=== PATIENT | male | born 1955 | race Caucasian/White ===

== ENCOUNTER → 2016-06-06 | Outpatient (CLI) | payer BC | END | disposition home or self-care (01) | LOC: GMA 12:15 | PROVIDERS: ATTEND Nurse Practitioner Acute Care | DX: E53.9 Vitamin B deficiency, unspecified (principal) ==

== ENCOUNTER 2017-08-28 14:17 | Emergency (ER) | payer BC ==
[2017-08-28] MEDS ORDERED: NITROGLYCERIN 0.4 MG 25 EA TAB SL ONE (14:35)
[2017-08-28] MEDS ORDERED: ASPIRIN TABLET 325 MG TAB PO ONE (14:35)
[2017-08-28] MEDS ORDERED: SODIUM CHLORIDE 0.9% (FLUSH) 10 ML SYG IV PRN (14:35)
--- NOTE | 2017-08-28 14:37 | ED.PDOC ---
History of Present Illness - General Chief Complaint: Cardiovascular Problem Stated Complaint: chest pressure Time Seen by Provider: 08/28/17 14:34 Source: patient, family Exam Limitations: no limitations - History of Present Illness Initial Comments: PT REPORTS 2 DAY HISTORY OF INTERMITTENT LEFT SIDED CHEST PRESSURE WITH RADIATION DOWN THE LEFT ARM. PT DENIES ANY MEDICAL HISTORY. HE REPORTS PAIN IS 3/10 IN INTENSITY CURRENTLY BUT STATES IT WAS ABOUT 8/10 YESTERDAY. Timing/Duration: days - 2 Severity/Quality: pressure Location: substernal Chest Pain Radiation: arms Activities at Onset: none Prior Chest Pain/Cardiac Workup: no prior chest pain, no prior cardiac workup Improving Factors: nothing Worsening Factors: nothing Nitro Today/Relief: no nitro taken today Aspirin Treatment Today: no aspirin today Associated Symptoms: denies symptoms Allergies/Adverse Reactions: Allergies Hydrocodone Adverse Reaction (Verified 08/28/17 14:32) Other Home Medications: Ambulatory Orders NK [NK] 08/28/17 Review of Systems - Review of Systems Constitutional: Denies: chills, fever EENTM: Denies: nose congestion, throat pain Respiratory: Denies: cough, short of breath Cardiology: States: see HPI, chest pain. Denies: syncope Gastrointestinal/Abdominal: Denies: abdominal pain, nausea, vomiting Genitourinary: Denies: dysuria, frequency Musculoskeletal: Denies: joint pain, joint swelling Skin: Denies: dryness, lesions Neurological: Denies: headache, numbness Endocrine: States: no symptoms reported Hematologic/Lymphatic: States: no symptoms reported Past Medical History (General) - Patient Medical History Hx Seizures: No Hx Stroke: No Hx Dementia: No Hx Cardiac Disorders: No Hx Congestive Heart Failure: No Hx Pacemaker: No Hx Hypertension: No Hx Thyroid Disease: No Hx Diabetes: No Hx Gastroesophageal Reflux: No Hx Renal Disease: No Surgical History: other - Vaccination History Hx Influenza Vaccination: No Hx Pneumococcal Vaccination: No - Social History Hx Tobacco Use: No Hx Alcohol Use: No Hx Depression: No Family Medical History - Family History Mother Family History: Unknown Physical Exam - Physical Exam General Appearance: Alert, Comfortable, No apparent distress, Well Developed, Well Groomed, Well Hydrated, Well Nourished Eyes, Ears, Nose, Throat Exam: normal ENT inspection Neck: supple, normal inspection Respiratory: lungs clear, normal breath sounds, no respiratory distress Cardiovascular/Chest: regular rate, rhythm, no murmur Gastrointestinal/Abdominal: non tender, soft Extremity: normal inspection, no pedal edema Neurologic: alert, normal mood/affect, oriented x 3 Skin Exam: normal color, warm/dry Progress - Progress Progress: 08/28/17 15:32 PT REPORTS COMPLETE RESOLUTION OF PAIN AFTER 1 SL NTG. LABS AND DIAGNOSTICS DISCUSSED. - Results/Orders Results/Orders: Laboratory Tests 08/28/17 14:35 WBC 10.4 RBC 5.07 Hgb 16.7 Hct 46.6 MCV 91.8 MCH 32.8 H MCHC 35.8 RDW 12.5 Plt Count 164 MPV 7.9 Absolute Neuts (auto) 8.10 H Absolute Lymphs (auto) 1.20 Absolute Monos (auto) 0.90 H Absolute Eos (auto) 0.20 Absolute Basos (auto) 0.00 Neutrophils % 77.3 Lymphocytes % 11.9 L Monocytes % 8.5 Eosinophils % 2.0 Basophils % 0.3 PT 12.1 INR 1.040 PTT (SP) 29.1 Sodium 131 L Potassium 3.7 Chloride 96 L Carbon Dioxide 26 Anion Gap 12.7 BUN 14 Creatinine 0.98 BUN/Creatinine Ratio 14.3 Random Glucose 171 H Serum Osmolality 267.2 L Calcium 9.3 Magnesium 1.9 Creatine Kinase 812 H* CK-MB (CK-2) 75.2 H* CK-MB (CK-2) % 9.26 H Troponin I 11.43 H* B-Natriuretic Peptide 102.0 H - EKG/XRAY/CT EKG: Sinus - 75BPM, NL INTERVALS, NL AXIS, no ST T wave changes, Abnormal Q waves - IN THE INFERIOR LEADS, NO OLD EKG FOR COMPARISON. Departure - Departure Clinical Impression: NSTEMI (non-ST elevated myocardial infarction) Time of Disposition: 15:35 Disposition: Transfer to Hospital Condition: Fair Departure Forms: ED Discharge - Pt. Copy, Patient Portal Self Enrollment Instructions: DI for Chest Pain Referrals: Renny Kim MD [Primary Care Provider] - 1-2 Weeks Home Medications: Ambulatory Orders NK [NK] 08/28/17 Critical Care Note - Critical Care Note Total Time (mins): 42 Comments: CRITICAL EVENT: CHEST PAIN CRITICAL FINDINGS: Q WAVES ON EKG, TPI: 11 CRITICAL ACTIONS: INITIATION OF SL NTG, ASA, IV NTG, IV HEPARIN, CONSULTATION FOR TRANSFER Transfer to Outside Facility - Transfer Information Accepting Provider:: DR. BOWENS Accepting Facility: [facility] Reason for Transfer: required specialist not available - CARDIOLOGY
[2017-08-28 14:49] VITALS: TEMP 98.1
--- NOTE | 2017-08-28 14:53 | RAD ---
EXAM DESCRIPTION: Chest,1 View CLINICAL HISTORY: chest pain COMPARISON: None. IMPRESSION: Single AP portable upright view of the chest shows cardiac silhouette and pulmonary vasculature to be within normal limits. Lungs are normally aerated and clear. No obvious pleural effusion or pneumothorax is seen. Electronically signed by: Manish Carvajal MD 08/28/2017 2:52 PM CDT
[2017-08-28 15:21] VITALS: O2SAT 97
[2017-08-28] MEDS ORDERED: NITROGLYCERIN/D5W IV 50,000 MCG in PREMIX BOTTLE 1 BOTTLE IVS SCH (15:30)
[2017-08-28] MEDS ORDERED: HEPARIN PREMIX 25,000 UNITS in PREMIX BAG 1 BAG IVS SCH (15:30)
[2017-08-28] MEDS ORDERED: NITROGLYCERIN/D5W IV 250 ML IVS ONE (15:42)
[2017-08-28 16:40] VITALS: BP 143/78
== END 2017-08-28 16:40 | disposition short-term general hospital (02) ==
LOC: ER 14:17
DX: I21.4 Non-ST elevation (NSTEMI) myocardial infarction (principal)

== ENCOUNTER → 2018-02-05 | Outpatient (CLI) | payer BC | LOC: GMAM 17:10 | PROVIDERS: ATTEND Family Medicine | DX: E53.9 Vitamin B deficiency, unspecified (principal); E29.1 Testicular hypofunction; E55.9 Vitamin D deficiency, unspecified ==

== ENCOUNTER → 2018-03-06 | Outpatient (CLI) | payer BC | LOC: GMAM 10:50 | PROVIDERS: ATTEND Family Medicine | DX: E29.1 Testicular hypofunction (principal) ==

== ENCOUNTER → 2018-08-06 | Outpatient (CLI) | payer BC | LOC: GMAM 10:14 | PROVIDERS: ATTEND Family Medicine | DX: E29.1 Testicular hypofunction (principal); I10 Essential (primary) hypertension; Z12.5 Encounter for screening for malignant neoplasm of prostate ==

== ENCOUNTER → 2018-11-07 | Outpatient (CLI) | payer BC ==
--- NOTE | 2018-11-08 11:41 | MRI ---
EXAM DESCRIPTION: Cervical Spine: MRI. CLINICAL HISTORY: 63 years Male CERVICAL DISC DISORDER COMPARISON: Cervical spine radiographs 11/05/2018. TECHNIQUE: Multiplanar, high-field MRI, multiple sequences, non-contrast Cervical spine. FINDINGS: C2-C3: Normal disc with disc space preserved. Minimal hypertrophic arthrosis left facet and left neural foraminal narrowing. Canal and right neuroforamen are patent. C3-C4: Normal signal in the disc with disc space preserved. Hypertrophic right facet arthrosis and minimal neural foraminal narrowing. Canal and left neuroforamen are patent. C4-C5: Posterior midline 3 mm disc bulge with hyperintense T2 annular fissure abutting the ventral cord. Minimal canal narrowing. Facets negative. Bilateral neural foramina are patent. C5-C6: Desiccated disc with anterior and posterior bulging and disc space loss. Trace retrolisthesis. Left posterior disc protrusion 5 mm abutting the cord and the exiting left C6 nerve. Left uncinate spur. Borderline left neural foraminal stenosis and left paracentral mild canal stenosis. Mild to moderate narrowing of the right foramen with uncinate spur. Facets are negative. C6-C7: Disc desiccation, minimal disc space loss, anterior and posterior bulging. Not encroaching on the cord. Minimal thickening of the ligaments and mild canal narrowing. Facet joints are negative. Bilateral moderate neural foraminal narrowing. Normal signal in the remaining discs with no bulging. Disc spaces preserved. Canal and neural foramina are patent. Facet joints unremarkable. Spinal alignment kyphosis C2-C6. No cord compression or cord edema. Atlantoaxial joint minimal arthrosis and hypertrophy of the anterior ligament. Base of the cerebellar tonsils is above the foramen magnum. Paravertebral soft tissues negative. Vertebral bodies are not compressed at any level. Normal marrow signal in the remaining vertebral bodies and the posterior elements. IMPRESSION: 1. Multiple levels of the desiccated discs. Minimal spondylosis. No canal stenosis. 2. Posterior midline bulge C4-C5 with annular fissure abutting the ventral cord. Minimal canal narrowing. Foramina patent. 3. Left posterior C5-C6 disc protrusion abutting the cord and the exiting left C6 nerve. Borderline left neural foraminal stenosis. Paracentral left mild canal stenosis. Correlate for left C6 radiculopathy. Electronically signed by: Zach Pierce MD 11/08/2018 11:39 AM CDT
== END ==
LOC: MRI 10:49
PROVIDERS: ATTEND Family Medicine
DX: M50.122 Cervical disc disorder at C5-C6 level with radiculopathy (principal); M50.123 Cervical disc disorder at C6-C7 level with radiculopathy; M43.12 Spondylolisthesis, cervical region; M46.02 Spinal enthesopathy, cervical region; M48.02 Spinal stenosis, cervical region

== ENCOUNTER → 2019-03-10 | Outpatient (CLI) | payer BC | LOC: LAB.O 09:16 | PROVIDERS: ATTEND Family Medicine | DX: D75.0 Familial erythrocytosis (principal); R73.09 Other abnormal glucose; E29.1 Testicular hypofunction ==

== ENCOUNTER → 2019-03-10 | Outpatient (CLI) | payer BC | LOC: GMAM 11:26 | PROVIDERS: ATTEND Family Medicine | DX: E29.1 Testicular hypofunction (principal); R73.09 Other abnormal glucose ==

== ENCOUNTER → 2019-03-19 | Outpatient (CLI) | payer BC ==
--- NOTE | 2019-03-19 19:09 | US ---
EXAM DESCRIPTION: Gall Bladder: ULTRASOUND. CLINICAL HISTORY: ERYTHROCYTOSIS COMPARISON: None. TECHNIQUE: Transabdominal scanning: Edwards-scale and Doppler modes. FINDINGS: Gallbladder: normal size, shape, echogenicity; no intraluminal stones or sludge. No fluid around the gallbladder. No wall thickening. 2.9 mm. Non-tender with transducer pressure. Common bile duct: caliber 5.1. mm within normal limits. Liver: Increased heterogeneous echogenicity; contour liver capsule smooth where seen. No fluid around the liver. Intrahepatic biliary ducts normal caliber. Doppler hepatopedal flow portal vein.. Long axis right lobe 16.8 cm. Pancreas: normal size Normal echogenicity. Duct not seen. Aorta: Proximal aorta diameter 2.6 cm. Right kidney: 12.1 cm Long axis with normal cortical thickness and echogenicity. No echogenic stones. No hydronephrosis. 8 x 7 mm internal cyst. Juxtacortical 7 x 6 mm cyst. IMPRESSION: Fatty liver borderline enlarged. Physiologic vascularity with no dilated ducts. Smooth capsule with no ascites. Gallbladder and pancreas are unremarkable. Normal caliber of the duct. Internal and external simple cysts on the right kidney. 2.6 cm proximal abdominal aortic aneurysm suspected. Recommend follow-up every 5 years. Reference: J Am Zhanna Radiol 2013;10:789-794. Electronically signed by: Zach Pierce MD 03/19/2019 7:08 PM MARKETING INFORMATION COORDINATOR
== END ==
LOC: US 08:13
PROVIDERS: ATTEND Family Medicine
DX: D75.0 Familial erythrocytosis (principal); I71.4 Abdominal aortic aneurysm, without rupture; K76.0 Fatty (change of) liver, not elsewhere classified; N28.1 Cyst of kidney, acquired

== ENCOUNTER → 2019-03-20 | Outpatient (CLI) | payer BC | LOC: GMAM 11:11 | PROVIDERS: ATTEND Family Medicine | DX: K76.0 Fatty (change of) liver, not elsewhere classified (principal); D75.0 Familial erythrocytosis ==

== ENCOUNTER → 2019-12-15 | Outpatient (CLI) | payer BC | LOC: GMAM 14:36 | PROVIDERS: ATTEND Family Medicine | DX: Z12.5 Encounter for screening for malignant neoplasm of prostate (principal); E53.9 Vitamin B deficiency, unspecified; I10 Essential (primary) hypertension; E29.1 Testicular hypofunction; E55.9 Vitamin D deficiency, unspecified ==